=== PATIENT | female | born 2000 | race American Indian/Alaskan Native ===

== ENCOUNTER 2022-08-01 22:45 | Emergency (ER) | payer SELFPAY ==
--- NOTE | 2022-08-02 06:00 | XRay Report ---
ABDOMEN 1 VIEW 08/02/2022 4:52 AM INDICATION / CLINICAL INFORMATION: Constipation. COMPARISON: None available. FINDINGS: TUBES / LINES: None. BOWEL GAS PATTERN: No significant abnormality. FREE AIR / EXTRALUMINAL GAS: None. ADDITIONAL FINDINGS: No significant additional findings. IMPRESSION: 1. No acute findings. Signer Name: Stuart Steele MD Signed: 08/02/2022 5:55 AM Workstation Name: [id number]
[2022-08-02] MEDS ORDERED: MAGNESIUM CITRATE 300 ML ORAL LIQD PO ONE (07:58)
--- NOTE | 2022-08-02 07:59 | Emergency Department Report ---
ED Abdominal Pain HPI - General Chief Complaint: Nausea/Vomiting/Diarrhea Stated Complaint: DIARRHEA/HEMORRHOIDS Time Seen by Provider: 08/02/22 07:38 Source: patient Mode of arrival: Ambulatory Limitations: No Limitations - History of Present Illness Initial Comments: Patient is a 21-year-old female that comes to the emergency room with constipation. She states its been several weeks since she had a normal bowel movement. She denies use of opiates. She denies a history of the same. She does not have pain in her abdomen per se but it is just she feels like she needs to defecate. She also has hemorrhoids. Patient has no fever or chills. No hypotension or tachycardia. Patient has no nausea and vomiting. No chest pain or shortness of breath. MD Complaint: abdominal pain -: Gradual, week(s) Improves With: nothing Worsens With: nothing Associated Symptoms: denies other symptoms. denies: nausea, vomiting, fever - Related Data Previous Rx's Medication Instructions Recorded Last Taken Type Docusate Sodium [Colace] 100 mg PO BID #60 capsule 08/02/22 Unknown Rx Magnesium Citrate [Citrate of 300 ml PO NOW #1 bottle 08/02/22 Unknown Rx Magnesia] Phenyleph/Pramoxin/Glycr/W.pet 1 appful RC BID #1 tube 08/02/22 Unknown Rx [Preparation H Cream] Polyethylene Glycol 3350 [Miralax] 119 gm PO DAILY #30 dose 08/02/22 Unknown Rx Senna [place] Extract [Senna] 176 mg PO BID #60 dose 08/02/22 Unknown Rx Allergies Allergy/AdvReac Type Severity Reaction Status Date / Time No Known Allergies Allergy Unverified 08/01/22 22:57 ED Review of Systems ROS: Stated complaint: DIARRHEA/HEMORRHOIDS Other details as noted in HPI Comment: All other systems reviewed and negative ED Past Medical Hx - Past Medical History Previous Medical History?: No - Surgical History Past Surgical History?: No - Family History Family history: no significant - Social History Smoking Status: Never Smoker Substance Use Type: Alcohol - Medications Home Medications: Home Medications Medication Instructions Recorded Confirmed Last Taken Type Docusate Sodium [Colace] 100 mg PO BID #60 capsule 08/02/22 Unknown Rx Magnesium Citrate [Citrate of 300 ml PO NOW #1 bottle 08/02/22 Unknown Rx Magnesia] Phenyleph/Pramoxin/Glycr/W.pet 1 appful RC BID #1 tube 08/02/22 Unknown Rx [Preparation H Cream] Polyethylene Glycol 3350 [Miralax] 119 gm PO DAILY #30 dose 08/02/22 Unknown Rx Senna [place] Extract [Senna] 176 mg PO BID #60 dose 08/02/22 Unknown Rx ED Physical Exam - General Limitations: No Limitations General appearance: alert, in no apparent distress - Head Head exam: Present: atraumatic, normocephalic - Eye Eye exam: Present: normal appearance - ENT ENT exam: Present: mucous membranes moist - Neck Neck exam: Present: normal inspection - Respiratory Respiratory exam: Present: normal lung sounds bilaterally. Absent: respiratory distress - Cardiovascular Cardiovascular Exam: Present: regular rate, normal rhythm. Absent: systolic murmur, diastolic murmur, rubs, gallop - GI/Abdominal GI/Abdominal exam: Present: soft, normal bowel sounds - Extremities Exam Extremities exam: Present: normal inspection - Back Exam Back exam: Present: normal inspection - Neurological Exam Neurological exam: Present: alert, oriented X3 - Psychiatric Psychiatric exam: Present: normal affect, normal mood - Skin Skin exam: Present: warm, dry, intact, normal color. Absent: rash ED Course Vital Signs 08/01/22 22:50 Temperature 98.8 F Pulse Rate 95 H Respiratory 16 Rate Blood Pressure 106/82 [Right] O2 Sat by Pulse 97 Oximetry ED Medical Decision Making - Radiology Data Radiology results: report reviewed, image reviewed See report - Medical Decision Making Vital Signs 08/01/22 22:50 Temperature 98.8 F Pulse Rate 95 H Respiratory 16 Rate Blood Pressure 106/82 [Right] O2 Sat by Pulse 97 Oximetry Abdominal exam is benign. Patient given lactulose for mag citrate is not available. She is also been given an enema in the ER had minimal results. Given her benign abdomen and no nausea vomiting or fever. I am discharging her home with a bowel cocktail. She will follow-up with PCP. She has been advised on diet. Patient being discharged home with discharge plan of care including diet, activity, medications and follow-up. She verbalizes understanding of plan of care - Differential Diagnosis Constipation rule out obstruction Critical care attestation.: If time is entered above; I have spent that time in minutes in the direct care of this critically ill patient, excluding procedure time. ED Disposition Clinical Impression: Constipation, Hemorrhoids Disposition: HOME / SELF CARE / HOMELESS Is pt being admited?: No Does the pt Need Aspirin: No Condition: Stable Instructions: Constipation, Adult, Hemorrhoids, [id number] Additional Instructions: Stay well-hydrated with water Avoid opiates Avoid fried food and fast food Medications as ordered today Follow-up with primary care. I have given you referral below Referrals: ARLEY GARCIA MD [Primary Care Provider] - 3-5 Days Forms: Work/School Release Form(ED), Accompanied Note Time of Disposition: 10:12
[2022-08-02] MEDS ORDERED: MINERAL OIL ENEMA 133 ML PR ONE (08:08)
[2022-08-02] MEDS ORDERED: LACTULOSE 20 GM/30 ML ORAL LIQD PO ONE (08:08)
[2022-08-02 10:33] VITALS: BP 115/77
== END 2022-08-02 10:34 | disposition home or self-care (01) ==
LOC: ED 22:45
DX: K59.00 Constipation, unspecified (principal); K64.9 Unspecified hemorrhoids; F10.20 Alcohol dependence, uncomplicated
CPT/HCPCS: 74018; 99283